=== PATIENT | female | born 1965 | race Caucasian/White ===

== ENCOUNTER 2021-10-13 17:42 | Emergency (ER) | payer SELFPAY ==
[2021-10-13 18:31] LABS: Absolute Lymphocytes (CBC) 2.2 K/uL (0.7-4.9); Hematocrit 48.6 % (36.0-45.0); Lymphocytes % 32.6 % (15.3-44.8); MPV 7.9 fL (7.6-11.3); RBC Red Blood Cell Count 5.17 M/uL (3.86-4.86)
[2021-10-13 18:32] LABS: Urine Blood 1+ (Negative); Urine Glucose Negative (Negative); Urine Protein Trace (Negative); Urine pH 6.5 (5.0-7.0)
[2021-10-13 18:46] LABS: Protime INR 1.07
[2021-10-13 19:08] LABS: Urine Bacteria >50 /HPF (<20)
[2021-10-13 19:15] LABS: ALT/SGPT 30 U/L (12-78); AST/SGOT 13 U/L (15-37); Albumin 4.1 g/dL (3.4-5.0); Alkaline Phosphatase 102 U/L (45-117); BUN Blood Urea Nitrogen 16 mg/dL (7-18); Bicarbonate 27 mmol/L (21-32); Bilirubin Direct < 0.1 mg/dL (0-0.2); Bilirubin Total 0.3 mg/dL (0.2-1.0); Glucose Level 98 mg/dL (74-106); Potassium 3.5 mmol/L (3.5-5.1); Protein, Total 7.7 g/dL (6.4-8.2); Sodium Level 141 mmol/L (136-145)
[2021-10-13 19:15] LABS: Barbiturates NEGATIVE (NEGATIVE); Benzodiazepines NEGATIVE (NEGATIVE); Cocaine NEGATIVE (NEGATIVE); METHAMPHETAM POSITIVE (NEGATIVE); Methadone NEGATIVE (NEGATIVE); Opiates NEGATIVE (NEGATIVE); Phencyclidine NEGATIVE (NEGATIVE); THC Cannibis NEGATIVE (NEGATIVE)
[2021-10-13] MEDS ORDERED: CEFTRIAXONE 1000 MG/VIAL ONE (20:05)
--- NOTE | 2021-10-13 21:07 | ER ---
Nurse's Notes [facility] Name: Sima Rojo Age: 56 yrs Sex: Female : 1965 Arrival Date: 10/13/2021 Time: 17:43 Bed 8 Private MD: Diagnosis: Suicidal ideations Presentation: 10/13 17:48 Chief complaint: Patient states: PD was called by friends/family while at [place], pt ph stated that she was suicidal and was willing to come to the ER for treatment. Pt reports paranoia, states, " They are all out to get me. They keep going through my stuff and are saying that I'm stealing." Pt tearful in triage, states , " I just don't care anymore." Denies plan, reports hx of depression. Coronavirus screen: Vaccine status: Patient reports being unvaccinated. At this time, the client does not indicate any symptoms associated with coronavirus-19. Ebola Screen: No symptoms or risks identified at this time. Initial Sepsis Screen: Does the patient meet any 2 criteria? No. Patient's initial sepsis screen is negative. Does the patient have a suspected source of infection? No. Patient's initial sepsis screen is negative. Risk Assessment: Do you want to hurt yourself or someone else? Patient reports desire/thoughts of hurting themselves or someone else. Provider notified. Onset of symptoms was October 13, 2021. 17:48 Method Of Arrival: Ambulatory 17:48 Acuity: JUDAH 2 ph Triage Assessment: 10/16 03:34 General: Appears in no apparent distress. comfortable. lg3 MD DO RESIDENT URGENT CARE: 09:36 LMP N/A - Post-menopause jl7 Historical: - Allergies: 10/13 17:54 No Known Allergies; ph - PMHx: 17:54 Depressive disorder; ph - PSHx: 17:54 Appendectomy; ph - Immunization history:: Adult Immunizations unknown. - Social history:: Smoking status: Patient reports the use of cigarette tobacco products, smokes one-half pack cigarettes per day, Patient/guardian denies using alcohol, street drugs. Screenin:03 Abuse screen: Denies threats or abuse. Nutritional screening: No deficits noted. vg1 Tuberculosis screening: No symptoms or risk factors identified. Fall Risk No fall in past 12 months (0 pts). No secondary diagnosis (0 pts). IV access (20 points). Ambulatory Aid- None/Bed Rest/Nurse Assist (0 pts). Gait- Normal/Bed Rest/Wheelchair (0 pts) Mental Status- Oriented to own ability (0 pts). Total Ruth Fall Scale indicates No Risk (0-24 pts). Assessment: 18:58 General: Appears uncomfortable, slender, Behavior is cooperative, crying. Pain: Denies vg1 pain. Neuro: Level of Consciousness is awake, alert, obeys commands, Oriented to person, place, time, situation. Cardiovascular: Patient's skin is warm and dry. Respiratory: Airway is patent Respiratory effort is even, unlabored. GI: No signs and/or symptoms were reported involving the gastrointestinal system. : No signs and/or symptoms were reported regarding the genitourinary system. EENT: No signs and/or symptoms were reported regarding the EENT system. Derm: Skin is intact, Skin is pink, warm \\T\\ dry. Musculoskeletal: Circulation, motion, and sensation intact. 19:00 Reassessment: safety check complete - room is clear of trash, unnecessary equipment, al4 and potentially harmful objects. patients belongings are at nurses station with the exception of her phone/tablet (supervisor propellant charge loading aware). service liaison representative states there will be no sitter assigned to patient on this shift. 19:17 General: Appears in no apparent distress. comfortable, Behavior is calm, cooperative. al4 Pain: Denies pain. Neuro: Level of Consciousness is awake, alert, obeys commands, Oriented to person, place, time, situation. Cardiovascular: Capillary refill < 3 seconds Patient's skin is warm and dry. Respiratory: Airway is patent Respiratory effort is even, unlabored. GI: No signs and/or symptoms were reported involving the gastrointestinal system. : No signs and/or symptoms were reported regarding the genitourinary system. EENT: No signs and/or symptoms were reported regarding the EENT system. Derm: Skin is intact, Skin is pink, warm \\T\\ dry. Musculoskeletal: Circulation, motion, and sensation intact. 20:00 Reassessment: Patient is alert, oriented x 3, equal unlabored respirations, skin al4 warm/dry/pink. . 21:00 Reassessment: Patient is alert, oriented x 3, equal unlabored respirations, skin al4 warm/dry/pink. . 22:00 Reassessment: Patient is alert, oriented x 3, equal unlabored respirations, skin al4 warm/dry/pink. . 23:00 Reassessment: Patient is alert, oriented x 3, equal unlabored respirations, skin al4 warm/dry/pink. 10/14 00:00 Reassessment: Patient is alert, oriented x 3, equal unlabored respirations, skin al4 warm/dry/pink. 02:00 Reassessment: patients belongings were taken earlier by transportation security officer Bjorn. al4 02:00 Reassessment: update C-SSRS: patient states she has attempted suicide in her lifetime, al4 but self interrupted said attempt. Patient states that she has wished she were and had thoughts of suicide in the past month and states "sorta" when asked if she had a plan. Patient denies recent loss by saying "I dont think so, no" when asked about recent relationship and financial loss. Patient states that she is currently homeless and "sometimes" feels alone. Patient denies previous psychiatric diagnosis when asked and states the only thing she has been diagnosed with is depression. Patient does feel like she has anxiety and aggression towards others and also feels like she is a burden to family or others. Patient identifies reason to live: "my kids" and says she has "a few" supportive friends and social network. Patient denies having access to a method for suicide ex: guns, or pills. 06:09 Reassessment: cell phone, tablet and staff technologist sent with transportation security officer Bjorn. al4 06:34 Reassessment: Paper charting done with guidance from Belia Yee RN. al4 06:56 Reassessment: phone at bedside with staff technologist so [facility] can contact patient. tablet al4 is still with security. 07:15 General: Appears in no apparent distress. comfortable, Behavior is calm, cooperative. vg1 Pain: Denies pain. Neuro: Level of Consciousness is awake, alert, obeys commands, Oriented to person, place, time, situation. Cardiovascular: Patient's skin is warm and dry. Respiratory: Airway is patent Respiratory effort is even, unlabored. GI: No signs and/or symptoms were reported involving the gastrointestinal system. : : No signs and/or symptoms were reported regarding the genitourinary system. Derm: Skin is intact, Skin is pink, warm \\T\\ dry. Musculoskeletal: Circulation, motion, and sensation intact. 07:15 Reassessment: at this time pt denies any thoughts of SI since last asked. [facility] for further information. 19:00 Reassessment: service liaison representative notified of the request for a sitter. No sitter will be present al4 on this shift. 19:15 General: Appears in no apparent distress. comfortable, Behavior is calm, cooperative. al4 Pain: Denies pain. Neuro: Level of Consciousness is awake, alert, obeys commands, Oriented to person, place, time, situation. Cardiovascular: Capillary refill < 3 seconds Patient's skin is warm and dry. Respiratory: Airway is patent Respiratory effort is even, unlabored. GI: Patient currently denies abdominal pain, nausea. : No signs and/or symptoms were reported regarding the genitourinary system. EENT: No signs and/or symptoms were reported regarding the EENT system. Derm: Skin is intact, Skin is pink, warm \\T\\ dry. Musculoskeletal: Circulation, motion, and sensation intact. Range of motion: intact in all extremities. 19:15 Reassessment: patient denies any thoughts of SI since last asked. please refer to al4 C-SSRS paper charting for more information. 20:23 Reassessment: Patient is back in room. Patient was taken upstairs to shower and brush al4 teeth by myself and [email or web address]. new blankets, and new scrubs given. 10/15 06:53 Reassessment: Patient is alert, oriented x 3, equal unlabored respirations, skin al4 warm/dry/pink. 07:10 General: Appears in no apparent distress. comfortable, Behavior is calm, cooperative. cb5 Pain: Denies pain. Neuro: Level of Consciousness is awake, alert, obeys commands, Oriented to person, place, time, situation. Cardiovascular: Capillary refill < 3 seconds Patient's skin is warm and dry. Respiratory: Airway is patent Respiratory effort is. GI: No signs and/or symptoms were reported involving the gastrointestinal system. Patient currently denies abdominal pain. : No signs and/or symptoms were reported regarding the genitourinary system. EENT: No signs and/or symptoms were reported regarding the EENT system. Derm: Skin is intact, Skin is pink, warm \\T\\ dry. Musculoskeletal: Circulation, motion, and sensation intact. Range of motion: intact in all extremities. 08:00 Reassessment: Patient is alert, oriented x 3, equal unlabored respirations, skin cb5 warm/dry/pink. 09:00 Reassessment: Patient and/or family updated on plan of care and expected duration. Pain cb5 level reassessed. Patient is alert, oriented x 3, equal unlabored respirations, skin warm/dry/pink. 10:00 Reassessment: Patient and/or family updated on plan of care and expected duration. Pain cb5 level reassessed. Patient is alert, oriented x 3, equal unlabored respirations, skin warm/dry/pink. pt awake, in no acute distress. Ate 100% of breakfast this morning, omi well. 11:00 Reassessment: Patient and/or family updated on plan of care and expected duration. Pain cb5 level reassessed. Patient is alert, oriented x 3, equal unlabored respirations, skin warm/dry/pink. 12:00 Reassessment: Patient and/or family updated on plan of care and expected duration. Pain cb5 level reassessed. Patient is alert, oriented x 3, equal unlabored respirations, skin warm/dry/pink. 13:00 Reassessment: Patient and/or family updated on plan of care and expected duration. Pain cb5 level reassessed. pt ate 100% of lunch omi well. 14:00 Reassessment: Patient and/or family updated on plan of care and expected duration. Pain cb5 level reassessed. Patient is alert, oriented x 3, equal unlabored respirations, skin warm/dry/pink. 15:00 Reassessment: Patient and/or family updated on plan of care and expected duration. Pain cb5 level reassessed. Patient is alert, oriented x 3, equal unlabored respirations, skin warm/dry/pink. 16:00 Reassessment: Patient and/or family updated on plan of care and expected duration. Pain cb5 level reassessed. Patient is alert, oriented x 3, equal unlabored respirations, skin warm/dry/pink. 17:01 Reassessment: pt awake, alert, in no acute distress. cb5 18:00 Reassessment: Patient and/or family updated on plan of care and expected duration. Pain cb5 level reassessed. Patient is alert, oriented x 3, equal unlabored respirations, skin warm/dry/pink. pt awake, in no acute distress. . 18:51 Reassessment: Patient and/or family updated on plan of care and expected duration. Pain cb5 level reassessed. Patient is alert, oriented x 3, equal unlabored respirations, skin warm/dry/pink. 19:59 General: pt resting at this time. NAD. as6 21:50 General: finger foods provided . as6 10/16 01:32 Reassessment: Patient appears in no apparent distress at this time. No changes from lg3 previously documented assessment. Patient and/or family updated on plan of care and expected duration. Pain level reassessed. Patient is alert, oriented x 3, equal unlabored respirations, skin warm/dry/pink. General: Appears in no apparent distress. comfortable. 06:57 Reassessment: Patient appears in no apparent distress at this time. pt quietly resting lg3 at this time. 07:15 Reassessment: Pt laying in bed with eyes closed, respiration seen and unlabored, no jl7 signs of distress noted. 09:00 Reassessment: Breakfast tray delivered, pt ate 75%. jl7 13:00 Reassessment: Lunch tray delivered, pt ate 100%. jl7 15:06 Reassessment: Pt crying, appears anxious and states "I just want to go home." Pt jl7 reports continued SI, states "I just want to . I was told I would be transferred and that was 3 days ago but I'm still here." Pt continues to cry. Updated pt on transfer status, we are waiting for acceptance, all facilities are full and waiting for another pt to be discharged then she will be accepted for transfer. Pt verbalized understanding. Asked pt if she wanted something to help calm down and pt agreed. ERD notified, VO for 5 mg Valium PO. Pt medicated as ordered and stretcher changed to hospital bed for pt comfort. Pt laid down in hospital bed and states "That is so much better. Thank you.". Psych: 10/13 19:05 [place] Suicide Severity Screening: In the past month, have you wished you were vg1 or wished you could go to sleep and not wake up? Patient responds "yes." Based off the client's responses additional C-SSRS screening is required. "In the past month, have you actually had any thoughts of killing yourself?" Patient responds "yes." Based off the client's response additional [place] suicide severity screening questions to be further documented on paper forms. "In your lifetime, have you ever done anything, started to do anything, or prepared to do anything to end your life?" Patient responds "yes." Patient reports suicidal intent within 3 past months. Patient reports suicidal intent occurred greater than 3 months prior. Subjective: Patient's mood is sad, Delusions are denied, Hallucinations are denied Having thoughts of suicide. Plan for suicide is 'to hang myself; I just dont know how to do it'. Pt also states 'if I dont go through with the hanging my next plan would probably be pills'. Objective: Patient is cooperative, Speech is normal, Affect is appropriate. Interventions: Removed personal items and placed in bag. Patient placed in hospital gown. Searched person for dangerous items. Urine collected and sent for urine drug test. Safety Checks: Personal items have been removed. Door is open. Pt denies substance abuse. 10/16 07:00 [place] Suicide Severity Screening: In the past month, have you wished you were jl7 or wished you could go to sleep and not wake up? Patient responds "yes." "In the past month, have you actually had any thoughts of killing yourself?" Patient responds "yes." Based off the client's response additional [place] suicide severity screening questions to be further documented on paper forms. "In your lifetime, have you ever done anything, started to do anything, or prepared to do anything to end your life?" Patient responds "yes." Patient reports suicidal intent within 3 past months. Patient reports suicidal intent occurred greater than 3 months prior. Subjective: Patient's mood is sad, Delusions are denied, Hallucinations are denied Having thoughts of suicide. Plan for suicide is Hanging or take pills. Objective: Patient is cooperative, Speech is normal, Affect is appropriate. 07:00 Safety Checks: Personal items have been removed. Door is open. No visitors are present jl7 at this time. 07:15 Safety Checks: Personal items have been removed. Door is open. No visitors are present jl7 at this time. 07:30 Safety Checks: Personal items have been removed. Door is open. No visitors are present jl7 at this time. 07:45 Safety Checks: Personal items have been removed. Door is open. No visitors are present jl7 at this time. 08:00 Safety Checks: Personal items have been removed. Door is open. No visitors are present jl7 at this time. 08:15 Safety Checks: Personal items have been removed. Door is open. No visitors are present jl7 at this time. 08:30 Safety Checks: Personal items have been removed. Door is open. No visitors are present jl7 at this time. 08:45 Safety Checks: Personal items have been removed. Door is open. No visitors are present jl7 at this time. 09:00 Safety Checks: Personal items have been removed. Door is open. No visitors are present jl7 at this time. 09:15 Safety Checks: Personal items have been removed. Door is open. No visitors are present jl7 at this time. 09:30 Safety Checks: Personal items have been removed. Door is open. No visitors are present jl7 at this time. 09:45 Safety Checks: Personal items have been removed. Door is open. No visitors are present jl7 at this time. 10:00 Safety Checks: Personal items have been removed. Door is open. No visitors are present jl7 at this time. 10:15 Safety Checks: Personal items have been removed. Door is open. No visitors are present jl7 at this time. 10:30 Safety Checks: Personal items have been removed. Door is open. No visitors are present jl7 at this time. 10:45 Safety Checks: Personal items have been removed. Door is open. No visitors are present jl7 at this time. 11:00 Safety Checks: Personal items have been removed. Door is open. No visitors are present jl7 at this time. 11:15 Safety Checks: Personal items have been removed. Door is open. No visitors are present jl7 at this time. 11:30 Safety Checks: Personal items have been removed. Door is open. No visitors are present jl7 at this time. 11:45 Safety Checks: Personal items have been removed. Door is open. No visitors are present jl7 at this time. 12:00 Safety Checks: Personal items have been removed. Door is open. No visitors are present jl7 at this time. 12:15 Safety Checks: Personal items have been removed. Door is open. No visitors are present jl7 at this time. 12:30 Safety Checks: Personal items have been removed. Door is open. No visitors are present jl7 at this time. 12:45 Safety Checks: Personal items have been removed. Door is open. No visitors are present jl7 at this time. 13:00 Safety Checks: Personal items have been removed. Door is open. No visitors are present jl7 at this time. 13:15 Safety Checks: Personal items have been removed. Door is open. No visitors are present jl7 at this time. 13:30 Safety Checks: Personal items have been removed. Door is open. No visitors are present jl7 at this time. 13:45 Safety Checks: Personal items have been removed. Door is open. No visitors are present jl7 at this time. 14:00 Safety Checks: Personal items have been removed. Door is open. No visitors are present jl7 at this time. 14:15 Safety Checks: Personal items have been removed. Door is open. No visitors are present jl7 at this time. 14:30 Safety Checks: Personal items have been removed. Door is open. No visitors are present jl7 at this time. 14:45 Safety Checks: Personal items have been removed. Door is open. No visitors are present jl7 at this time. 15:00 Safety Checks: Personal items have been removed. Door is open. No visitors are present jl7 at this time. 15:15 Safety Checks: Personal items have been removed. Door is open. No visitors are present jl7 at this time. 15:30 Safety Checks: Personal items have been removed. Door is open. No visitors are present jl7 at this time. 18:30 Commitment: Patient will be a voluntary commitment. [facility] Vital Signs: 10/13 17:48 BP 153 / 94; Pulse 91; Resp 18; Temp 98.3; Pulse Ox 100% on R/A; Weight 68.04 kg; ph Height 5 ft. 5 in. (165.10 cm); 22:43 BP 125 / 94; Pulse 97; Resp 18 S; Pulse Ox 98% on R/A; Pain 0/10; al4 02/13 07:15 BP 122 / 87; Pulse 75; Resp 14; Temp 97.5(O); Pulse Ox 98% ; vg1 19:36 Temp 97.9; al4 19:38 BP 114 / 73; Pulse 82; Resp 18; Pulse Ox 98% on R/A; oe 10/15 07:20 BP 116 / 70; Pulse 72; Resp 16; Temp 98.6; Pulse Ox 98% ; Pain 0/10; cb5 23:54 BP 129 / 77; Pulse 82; Resp 18 S; Pulse Ox 98% on R/A; as6 10/16 09:00 BP 123 / 80; Pulse 75; Resp 15; Temp 98.3; Pulse Ox 98% ; jl7 10/13 17:48 Body Mass Index 24.96 (68.04 kg, 165.10 cm) ph Totz Coma Score: 10/13 19:00 Eye Response: spontaneous(4). Verbal Response: oriented(5). Motor Response: obeys al4 commands(6). Total: 15. 10/14 00:00 Eye Response: spontaneous(4). Verbal Response: oriented(5). Motor Response: obeys al4 commands(6). Total: 15. 06:46 Eye Response: spontaneous(4). Verbal Response: oriented(5). Motor Response: obeys al4 commands(6). Total: 15. ED Course: 10/13 17:43 Patient arrived in ED. mr 17:54 Triage completed. ph 17:54 Arm band placed on. ph 17:56 Emerson Monahan NP is PHCP. pm1 17:56 Anibal Carrillo MD is Attending Physician. pm1 18:10 Initial lab(s) drawn, by nv, sent to lab. Inserted saline lock: 20 gauge in left dh3 antecubital area, using aseptic technique. Blood collected. 18:10 EKG done, by ED staff, reviewed by Emerson Monahan NP. 3 18:39 Sakshi Schroeder, RN is Primary Nurse. vg1 18:41 Urine Microscopic Only Sent. dh3 19:00 Safety Checks: Personal items have been removed. The door is open or patient has been al4 placed in a hallway bed/chair. Sitter not present at this time Note: patient awake, quiet and calm. 19:03 Patient has correct armband on for positive identification. Placed in gown. Bed in low vg1 position. Valuables Locked in safe. One-on-one care X 15 minutes. 19:05 No provider procedures requiring assistance completed. vg1 19:30 No apparent distress. Resting quietly. Safety Checks: Sitter not present at this time. al4 19:30 Patient has correct armband on for positive identification. Bed in low position. Side al4 rails up X2. 20:00 No apparent distress. Resting quietly. Safety Checks: Sitter not present at this time. al4 20:30 No apparent distress. Resting quietly. Safety Checks: Sitter not present at this time. al4 21:00 No apparent distress. Resting quietly. Safety Checks: Sitter not present at this time. al4 21:15 No apparent distress. Resting quietly. Safety Checks: Sitter not present at this time. al4 21:30 No apparent distress. Resting quietly. Safety Checks: Sitter not present at this time. al4 22:00 No apparent distress. Resting quietly. Safety Checks: Safety Checks: Sitter not present al4 at this time. 22:30 No apparent distress. Resting quietly. Safety Checks: Sitter not present at this time. al4 23:00 No apparent distress. Resting quietly. Safety Checks: Sitter not present at this time. al4 23:30 No apparent distress. Resting quietly. Safety Checks: Sitter not present at this time. al4 13 00:00 No apparent distress. Resting quietly. Safety Checks: Sitter not present at this time. al4 00:30 No apparent distress. Resting quietly. Safety Checks: Sitter not present at this time. al4 01:00 No apparent distress. Appears to be sleeping. Safety Checks: Sitter not present at this al4 time. 01:30 No apparent distress. Appears to be sleeping. Safety Checks: Sitter not present at this al4 time. 02:00 No apparent distress. Appears to be sleeping. Safety Checks: Sitter not present at this al4 time. 02:30 No apparent distress. Appears to be sleeping. Safety Checks: Sitter not present at this al4 time. 03:00 No apparent distress. Resting quietly. Safety Checks: Sitter not present at this time. al4 03:30 No apparent distress. Appears to be sleeping. Safety Checks: Sitter not present at this al4 time. 04:00 No apparent distress. Resting quietly. Appears to be sleeping. Safety Checks: Sitter al4 not present at this time. 04:30 No apparent distress. Resting quietly. Appears to be sleeping. Safety Checks: Sitter al4 not present at this time. 05:00 No apparent distress. Resting quietly. Appears to be sleeping. Safety Checks: Sitter al4 not present at this time. 05:30 No apparent distress. Appears to be sleeping. Safety Checks: Sitter not present at this al4 time. 06:00 No apparent distress. Resting quietly. Appears to be sleeping. Safety Checks: Sitter al4 not present at this time. 06:19 called the [facility] Crisis line to page out the screener weapons system instrument mechanic for patient eb screening. 06:29 No apparent distress. Appears to be sleeping. Safety Checks: Sitter not present at this al4 time. 06:35 Urine Culture Sent. mk 06:35 Acetaminophen Sent. mk 06:56 faxed patient cart to Cammy from [facility]/ She will call patient cell for patient eb screening. 07:00 No apparent distress. Resting quietly. Appears to be sleeping. Safety Checks: Personal vg1 items have been removed. The door is open or patient has been placed in a hallway bed/chair. Sitter not present at this time due to or because unavailable; charge nurse aware. 07:30 No apparent distress. Resting quietly. Safety Checks: The door is open or patient has vg1 been placed in a hallway bed/chair. Items have not been removed from patient due to or because: pt has cell phone at bedside and is currently speaking with personal from [facility] Sitter not present at this time due to or because no sitter at this time; charge nurse aware. 08:00 No apparent distress. Resting quietly. Safety Checks: Personal items have been removed. vg1 Pt states was done speaking with personal at [facility]; pt cell phone at nurses station. The door is open or patient has been placed in a hallway bed/chair. Sitter not present at this time due to or because sitter not available at this time; charge nurse aware. 08:08 Per Cammy from [facility] she recommends inpatient after her screening/ She asks for eb me to send chart over to [facility]/ She will call and let them know about the patient. / faxed patient records. 08:13 attempted to initiate a transfer with [facility]/ patient was denied due eb to being at capacity. 08:30 No apparent distress. eating breakfast. Safety Checks: Personal items have been vg1 removed. The door is open or patient has been placed in a hallway bed/chair. Sitter not present at this time due to or because sitter not available at this time; charge nurse aware. 09:00 No apparent distress. Resting quietly. Safety Checks: Personal items have been removed. vg1 The door is open or patient has been placed in a hallway bed/chair. Sitter not present at this time Note: sitter unavailable at this time; charge nurse aware. 09:30 No apparent distress. Appears to be sleeping. Safety Checks: Personal items have been vg1 removed. The door is open or patient has been placed in a hallway bed/chair. Sitter not present at this time due to or because sitter unavailable; charge nurse aware. 10:00 No apparent distress. Appears to be sleeping. Safety Checks: Personal items have been vg1 removed. The door is open or patient has been placed in a hallway bed/chair. Sitter not present at this time due to or because sitter unavailable; charge nurse aware. 10:30 Safety Checks: Personal items have been removed. The door is open or patient has been vg1 placed in a hallway bed/chair. Sitter not present at this time due to or because sitter unavailable; charge nurse notified. 10:30 No apparent distress. Appears to be sleeping. vg1 11:00 No apparent distress. pt walked with to the restroom. Safety Checks: Personal items vg1 have been removed. The door is open or patient has been placed in a hallway bed/chair. Sitter not present at this time due to or because sitter unavailable; charge nurse aware. 11:30 No apparent distress. Resting quietly. Safety Checks: Personal items have been removed. vg1 The door is open or patient has been placed in a hallway bed/chair. Sitter not present at this time due to or because sitter unavailabel; charge nurse aware. 12:00 No apparent distress. Appears to be sleeping. Safety Checks: Personal items have been vg1 removed. The door is open or patient has been placed in a hallway bed/chair. Sitter not present at this time due to or because sitter unavailable; charge nurse aware. 12:30 No apparent distress. Appears to be sleeping. Safety Checks: Personal items have been vg1 removed. The door is open or patient has been placed in a hallway bed/chair. Sitter not present at this time due to or because sitter unavailable; charge nurse aware. 13:00 No apparent distress. Resting quietly. pt eating lunch. Safety Checks: Personal items vg1 have been removed. The door is open or patient has been placed in a hallway bed/chair. Safety Checks: Sitter not present at this time due to or because sitter unavailable; charge nurse aware. 13:30 No apparent distress. Resting quietly. Safety Checks: Personal items have been removed. vg1 The door is open or patient has been placed in a hallway bed/chair. Sitter not present at this time due to or because sitter unavailable; charge nurse aware. 14:00 No apparent distress. Appears to be sleeping. Safety Checks: Personal items have been vg1 removed. The door is open or patient has been placed in a hallway bed/chair. Sitter not present at this time due to or because sitter unavailable; charge nurse aware. 14:30 No apparent distress. Appears to be sleeping. Safety Checks: Personal items have been vg1 removed. The door is open or patient has been placed in a hallway bed/chair. Sitter not present at this time due to or because sitter unavailable; charge nurse aware. 15:00 No apparent distress. Appears to be sleeping. Safety Checks: Personal items have been vg1 removed. The door is open or patient has been placed in a hallway bed/chair. Sitter not present at this time due to or because sitter unavailable; charge nurse aware. 15:30 No apparent distress. Appears to be sleeping. Safety Checks: Personal items have been vg1 removed. The door is open or patient has been placed in a hallway bed/chair. Sitter not present at this time due to or because sitter unavailable; charge nurse aware. 16:00 No apparent distress. Appears to be sleeping. Safety Checks: Personal items have been vg1 removed. The door is open or patient has been placed in a hallway bed/chair. Sitter not present at this time due to or because sitter unavialable; charge nurse aware. 16:30 No apparent distress. Appears to be sleeping. Safety Checks: Personal items have been vg1 removed. The door is open or patient has been placed in a hallway bed/chair. Sitter not present at this time due to or because sitter unavailable; charge nurse aware. 17:00 No apparent distress. Resting quietly. eating dinner. Safety Checks: Personal items vg1 have been removed. The door is open or patient has been placed in a hallway bed/chair. Sitter not present at this time due to or because sitter unavailable; charge nurse aware. 17:30 No apparent distress. Resting quietly. Safety Checks: Personal items have been removed. vg1 The door is open or patient has been placed in a hallway bed/chair. Sitter not present at this time due to or because sitter unavailable; charge nurse aware. 18:00 No apparent distress. Resting quietly. Safety Checks: Personal items have been removed. vg1 The door is open or patient has been placed in a hallway bed/chair. Sitter not present at this time due to or because sitter unavailable; charge nurse aware. 18:30 pt had accidental BM; wasn't able to make it to bedside commode; pt crying/upset; vg1 reassured pt everything was ok. 18:50 Warm blanket given. Oral care given. Cleaned of incontinence. Linen changed. pt was vg1 given cleaned paper scrubs; pt requesting shower; receiving nurse notified. 19:00 Primary Nurse role handed off by Sakshi Schroeder, RN cs9 19:00 No apparent distress. Resting quietly. Safety Checks: The door is open or patient has al4 been placed in a hallway bed/chair. Sitter not present at this time Note: supervisor propellant charge loading aware. 19:27 Raciel Mack is Primary Nurse. al4 19:30 No apparent distress. Resting quietly. Safety Checks: The door is open or patient has al4 been placed in a hallway bed/chair. Sitter not present at this time. 20:25 No apparent distress. Resting quietly. patient back in bed. denies pain. denies any al4 distress. Safety Checks: The door is open or patient has been placed in a hallway bed/chair. Sitter not present at this time. 21:00 No apparent distress. Resting quietly. Appears to be sleeping. Safety Checks: The door al4 is open or patient has been placed in a hallway bed/chair. Sitter not present at this time Note: supervisor propellant charge loading aware. 21:26 No apparent distress. Resting quietly. Patient requests food. kyler crackers. Safety al4 Checks: The door is open or patient has been placed in a hallway bed/chair. Sitter not present at this time. 22:02 No apparent distress. Resting quietly. Appears to be sleeping. Safety Checks: The door al4 is open or patient has been placed in a hallway bed/chair. Sitter not present at this time. 22:30 No apparent distress. Resting quietly. Appears to be sleeping. Safety Checks: The door al4 is open or patient has been placed in a hallway bed/chair. Sitter not present at this time. 22:58 No apparent distress. Resting quietly. Appears to be sleeping. Safety Checks: The door al4 is open or patient has been placed in a hallway bed/chair. Sitter not present at this time. 23:30 No apparent distress. Resting quietly. Appears to be sleeping. Safety Checks: The door al4 is open or patient has been placed in a hallway bed/chair. Sitter not present at this time. 14 00:00 No apparent distress. Appears to be sleeping. Safety Checks: The door is open or al4 patient has been placed in a hallway bed/chair. Sitter not present at this time. 00:30 No apparent distress. Appears to be sleeping. Safety Checks: The door is open or al4 patient has been placed in a hallway bed/chair. Sitter not present at this time. 01:00 No apparent distress. Appears to be sleeping. Safety Checks: The door is open or al4 patient has been placed in a hallway bed/chair. Sitter not present at this time. 01:03 Re Faxed all info to [facility], [facility], [place], [facility], [place] [address] [address], [place], Candace Wu, and [facility] 01:30 No apparent distress. Appears to be sleeping. Safety Checks: The door is open or al4 patient has been placed in a hallway bed/chair. Sitter not present at this time. 02:00 No apparent distress. Appears to be sleeping. Safety Checks: The door is open or al4 patient has been placed in a hallway bed/chair. Sitter not present at this time. 02:30 No apparent distress. Resting quietly. Appears to be sleeping. Safety Checks: The door al4 is open or patient has been placed in a hallway bed/chair. Sitter not present at this time. 03:00 No apparent distress. Resting quietly. Appears to be sleeping. Safety Checks: The door al4 is open or patient has been placed in a hallway bed/chair. Sitter not present at this time. 03:19 patient ambulated to restroom. No apparent distress. Safety Checks: The door is open or al4 patient has been placed in a hallway bed/chair. Sitter not present at this time. 03:55 No apparent distress. Resting quietly. Appears to be sleeping. Safety Checks: The door al4 is open or patient has been placed in a hallway bed/chair. Sitter not present at this time. 04:30 No apparent distress. Resting quietly. Appears to be sleeping. Safety Checks: The door al4 is open or patient has been placed in a hallway bed/chair. Sitter not present at this time. 05:00 No apparent distress. Resting quietly. Appears to be sleeping. Safety Checks: The door al4 is open or patient has been placed in a hallway bed/chair. Sitter not present at this time. 05:30 No apparent distress. Resting quietly. Appears to be sleeping. Safety Checks: The door al4 is open or patient has been placed in a hallway bed/chair. Sitter present at this time. 06:00 No apparent distress. Resting quietly. Appears to be sleeping. Safety Checks: The door al4 is open or patient has been placed in a hallway bed/chair. Sitter not present at this time. 06:33 No apparent distress. Resting quietly. Appears to be sleeping. Safety Checks: The door al4 is open or patient has been placed in a hallway bed/chair. Sitter not present at this time. 06:52 No apparent distress. Resting quietly. Safety Checks: The door is open or patient has al4 been placed in a hallway bed/chair. Sitter not present at this time. 07:00 Report given to CAROLINA Davis. al4 07:58 Primary Nurse role handed off by Raciel Mack bd 08:19 Susan Spencer, RN is Primary Nurse. cb5 18:57 Report given to Alyx White cb5 19:28 Primary Nurse role handed off by Susan Spencer RN cs9 19:59 José Luis Anna, CAROLINA is Primary Nurse. as6 10/16 06:53 Primary Nurse role handed off by José Luis Anna RN cs9 07:00 No apparent distress. Appears to be sleeping. transfer approval from receiving [facility]. Safety Checks: Personal items have been removed. There are no family/friend visitors at this time Sitter not present at this time. 07:36 Winsome Ingram RN is Primary Nurse. jl7 18:55 IV discontinued, intact, bleeding controlled, No redness/swelling at site. Pressure jl7 dressing applied. Administered Medications: 10/13 20:07 Drug: Rocephin (cefTRIAXone) 1 grams Route: IV; Rate: calculated rate; Site: left al4 antecubital; 20:07 Follow up: IV Status: Completed infusion; IV Intake: 10ml al4 10/14 02:15 Drug: NS 0.9% 1000 ml Route: IV; Rate: 1000 ml; Site: left antecubital; al4 04:22 Follow up: IV Status: Completed infusion al4 19:37 Drug: Rocephin (cefTRIAXone) 1 grams Route: IV; Rate: calculated rate; Infused Over: 2 al4 mins; Site: left antecubital; 19:38 Follow up: Response: No adverse reaction; IV Status: Completed infusion; IV Intake: [id number] 10/15 23:47 Drug: Rocephin (cefTRIAXone) 1 grams Route: IV; Rate: calculated rate; Site: left as6 antecubital; 10/16 03:16 Follow up: Response: No adverse reaction; IV Status: Completed infusion; IV Intake: [id number] 14:55 Drug: Valium (diazepam) 5 mg Route: PO; jl7 15:30 Follow up: Response: No adverse reaction; Anxiety decreased jl7 17:10 Drug: Bactrim (trimethoprim-sulfamethoxazole) (160 mg-800 mg (DS) 1 tablet Route: PO; jl7 18:56 Follow up: Response: No adverse reaction jl7 Intake: 10/13 20:07 IV: 10ml; Total: 10ml. al4 10/14 19:38 IV: 10ml; Total: 20ml. al4 10/16 03:16 IV: 50ml; Total: 70ml. as6 Outcome: 10/13 21:07 ER care complete, transfer ordered by MD. pm1 10/16 18:55 Transferred by ground EMS to other acute care facility: [facility]. Transfer form jl7 completed. Condition: stable Discharge instructions given to patient, Instructed on the need for transfer, Demonstrated understanding of instructions. 18:56 Patient left the ED. jl7 Signatures: Tere Liu, Cookie mr Biswas, Heidi, RN RN ph Emerson Monahan, MANAGER SAFE MANAGER SAFE pm1 Teja Forbes Jahala, RN RN jl7 Venus Castano 3 Michelle Painter Lacie, RN RN carol ann3 Sakshi Schroeder, RN RN mary1 Trish Edmonds 9 José Luis Anna, RN RN as6 Raciel Mack al4 Anna Vanegas, RN RN Susan Spears, RN RN cb5 Corrections: (The following items were deleted from the chart) 10/13 22:45 20:00 Reassessment: Patient is alert, oriented x 3, equal unlabored respirations, skin al4 warm/dry/pink. al4 22:45 21:00 Reassessment: Patient is alert, oriented x 3, equal unlabored respirations, skin al4 warm/dry/pink. al4 10/14 02:32 10/13 20:00 Safety Checks: Personal items have been removed. The door is not opened, al4 nor is patient placed in a hallway bed/chair. curtain open Sitter not present at this time Other: patient awake, quite, calm al4 10/14 01:32 10/13 20:00 Safety Checks: Personal items have been removed. The door is not opened, al4 nor is patient placed in a hallway bed/chair. curtain open Sitter not present at this time Other: patient awake, calm, and quiet al4 10/14 02:40 10/13 21:15 Safety Checks: Personal items have been removed. The door is not opened, al4 nor is patient placed in a hallway bed/chair. curtain open Sitter not present at this time Note: patient awake, quiet, calm. patient offered sandwich and applesauce with MANAGER SAFE permission al4 10/14 02:40 02 22:30 Safety Checks: Personal items have been removed. The door is not opened, al4 nor is patient placed in a hallway bed/chair. curtain open Sitter not present at this time Other: patient awake, quiet, calm al4 10/14 02:45 01:30 Safety Checks: Personal items have been removed. The door is not opened, nor is al4 patient placed in a hallway bed/chair. curtain open Sitter not present at this time Note: patient is sleeping al4 02:47 00:00 Safety Checks: Personal items have been removed. The door is not opened, nor is al4 patient placed in a hallway bed/chair. curtain open Sitter not present at this time Other: patient laying in bed, no apparent distress, calm, quiet al4 02:47 01:00 Safety Checks: Personal items have been removed. The door is not opened, nor is al4 patient placed in a hallway bed/chair. curtain open Sitter not present at this time Other: patient is sleeping al4 02:48 02:00 Safety Checks: Personal items have been removed. The door is not opened, nor is al4 patient placed in a hallway bed/chair. curtain open Sitter not present at this time Note: patient is sleeping al4 02:48 02:30 Safety Checks: Personal items have been removed. The door is not opened, nor is al4 patient placed in a hallway bed/chair. curtain open Sitter not present at this time Note: patient is sleeping al4 02:52 02 19:30 Safety Checks: Personal items have been removed. The door is open or al4 patient has been placed in a hallway bed/chair. Sitter not present at this time Other: patient awake, quiet, and calm al4 10/14 02:52 02 20:00 Safety Checks: Personal items have been removed. The door is not opened, al4 nor is patient placed in a hallway bed/chair. curtain open Sitter not present at this time Other: patient awake, quiet, calm al4 10/14 01:10/13 20:30 Safety Checks: Personal items have been removed. The door is not opened, al4 nor is patient placed in a hallway bed/chair. curtain open Sitter not present at this time Other: patient awake, calm, and quiet al4 10/14 01:52 10/13 21:00 Safety Checks: Personal items have been removed. The door is not opened, al4 nor is patient placed in a hallway bed/chair. curtain open Sitter not present at this time Note: patient awake, calm, quiet al4 10/14 01:52 10/13 21:30 Safety Checks: Personal items have been removed. The door is not opened, al4 nor is patient placed in a hallway bed/chair. patient awake, quiet, clam al4 10/14 01:10/13 22:00 Safety Checks: Personal items have been removed. The door is not opened, al4 nor is patient placed in a hallway bed/chair. curtain is open Sitter not present at this time Other: patient awake, quiet, calm al4 10/14 01:10/13 21:15 Safety Checks: Personal items have been removed. The door is not opened, al4 nor is patient placed in a hallway bed/chair. curtain open Sitter not present at this time Note: patient awake, quiet, calm. patient offered water with MANAGER SAFE permission al4 10/14 01:10/13 22:30 Safety Checks: Personal items have been removed. The door is not opened, al4 nor is patient placed in a hallway bed/chair. curtain open Sitter not present at this time Other: patient awake, quiet, calm. patient denies needing to use the restroom al4 10/14 01:52 02 23:00 Safety Checks: Personal items have been removed. The door is not opened, al4 nor is patient placed in a hallway bed/chair. curtain open Sitter not present at this time Other: patient awake, quiet, calm. pt denies needing to use restroom al4 10/14 02:52 10/13 23:30 Safety Checks: Personal items have been removed. The door is not opened, al4 nor is patient placed in a hallway bed/chair. curtain open Sitter not present at this time Note: patient awake, quiet, calm. sandwich and apple juice given with MANAGER SAFE permission/ [facility] 10/14 00:00 Safety Checks: Personal items have been removed. The door is not opened, nor is al4 patient placed in a hallway bed/chair. curtain open Sitter not present at this time Other: patient laying in bed, no apparent distress, calm, quiet al4 00:30 Safety Checks: Personal items have been removed. The door is not opened, nor is al4 patient placed in a hallway bed/chair. Sitter not present at this time Other: patient laying in bed, no apparent distress al4 01:00 Safety Checks: Personal items have been removed. The door is not opened, nor is al4 patient placed in a hallway bed/chair. curtain open Sitter not present at this time Other: patient is sleeping al4 01:30 Safety Checks: Personal items have been removed. The door is not opened, nor is al4 patient placed in a hallway bed/chair. curtain is open Sitter not present at this time Other: patient is sleeping nd4 10/13 20:00 Reassessment: Patient is alert, oriented x 3, equal unlabored respirations, al4 skin warm/dry/pink. patient resting comfortably and on tablet. [facility] 10/14 21:00 Reassessment: Patient is alert, oriented x 3, equal unlabored respirations, al4 skin warm/dry/pink. patient entertained by tablet. [facility] 10/14 22:00 Reassessment: Patient is alert, oriented x 3, equal unlabored respirations, al4 skin warm/dry/pink. patient on tablet. nd4 10/14 00:30 Reassessment: Patient is alert, oriented x 3, equal unlabored respirations, skin al4 warm/dry/pink. [facility] 05:16 02:00 Reassessment: update C-SSRS: patient states she has attempted suicide in her al4 lifetime, but self interrupted said attempt. Patient states that she has wished she were and had thoughts of suicide in the past month and states "sorta" when asked if she had a plan. Patient denies recent loss by saying "I dont think so, no" when asked about recent relationship and financial loss. Patient states that she is currently homeless and "sometimes" feels alone. Patient denies previous psychiatric diagnosis when asked and states the only thing she has been diagnosed with is depression. Patient does feel like she has anxiety and aggression towards others and also feels like she is a burden to family or others. Patient identifies reason to live: "my kids" and says she has "a few" supportive friends and social network. al4 05:49 02:00 Reassessment: update C-SSRS: patient states she has attempted suicide in her al4 lifetime, but self interrupted said attempt. Patient states that she has wished she were and had thoughts of suicide in the past month and states "sorta" when asked if she had a plan. Patient denies recent loss by saying "I dont think so, no" when asked about recent relationship and financial loss. Patient states that she is currently homeless and "sometimes" feels alone. Patient denies previous psychiatric diagnosis when asked and states the only thing she has been diagnosed with is depression. Patient does feel like she has anxiety and aggression towards others and also feels like she is a burden to family or others. Patient identifies reason to live: "my kids" and says she has "a few" supportive friends and social network. Patient denies having access to a method for suicide ex: guns, or pills. al4 06:12 19:00 Reassessment: safety check complete - room is clear of trash, unnecessary al4 equipment, and potentially harmful objects. patients belongings are at nurses station with the exception of her phone/tablet (supervisor propellant charge loading aware) al4 10/14 06:00 05:46 Reassessment: al4 al4 06:00 02:00 Reassessment: C-SSRS QShift Screen: "since last asked" on page 2 of SI patient al4 packet 2. "have you actually had thoughts of killing yourself?" patient states no, not since being here 6. "have you done anything, started to do anything or prepared to do anything to end your life?" patient states no, not since being here al4 06:45 10/13 20:00 Reassessment: Patient is alert, oriented x 3, equal unlabored respirations, al4 skin warm/dry/pink. . al4 10/14 07:12 07:02 Safety Checks: al4 vg1 08:14 07:15 General: Appears in no apparent distress. comfortable, Behavior is calm, vg1 cooperative, vg1 08:24 08:00 No apparent distress. Resting quietly. Appears to be sleeping. vg1 vg1 20:28 08:25 No apparent distress. Resting quietly. patient back in bed. denies pain. denies al4 any distress. al4 20:28 08:25 Safety Checks: The door is open or patient has been placed in a hallway al4 bed/chair. Sitter not present at this time al4 : 20:23 Reassessment: Patient is back in room. Patient was taken upstairs to shower and al4 brush teeth by myself and [email or web address]. al4 10/15 06:52 10/14 20:23 Reassessment: Patient is back in room. Patient was taken upstairs to shower al4 and brush teeth by myself and [email or web address]. New linens, new blankets, and new scrubs given. al4 10/15 06:57 06:52 No apparent distress. Resting quietly. Appears to be sleeping. al4 al4
--- NOTE | 2021-10-13 21:07 | EDPHYS ---
Physician Documentation [facility] Name: Sima Rojo Age: 56 yrs Sex: Female : 1965 Arrival Date: 10/13/2021 Time: 17:43 Bed 8 Private MD: ED Physician Anibal Carrillo HPI: 10/13 18:08 This 56 yrs old Female presents to ER via Ambulatory with complaints of Suicidal pm1 Ideation. 18:08 The patient presents to the emergency department with depression, suicide ideation, and pm1 the patient has a plan, to hang oneself, to overdose with medications. Onset: The symptoms/episode began/occurred today. Past psychiatric history: Prior diagnosis: depression, Anxiety, Psychiatric medications include: none, Primary psychiatric physician: the patient does not have a primary psychiatric physician, Patient last seen by psychiatry 1.5 years ago for 4 - 5 virtual visits. Patient was taking trazodone, anti-depressant and anti-anxiety medication at the time. Associated signs and symptoms: The patient has no apparent associated signs or symptoms. Severity of symptoms: in the emergency department the symptoms are worse. The patient has not recently seen a physician. Patient was at dinner with friends/roommates and they started accusing her of stealing. She started feeling suicidal with plan of taking pills to OD or to hang herself. Patient with history of OD about 8 years ago. [employer]: 10/16 09:36 LMP N/A - Post-menopause jl7 Historical: - Allergies: 10/13 17:54 No Known Allergies; ph - PMHx: 17:54 Depressive disorder; ph - PSHx: 17:54 Appendectomy; ph - Immunization history:: Adult Immunizations unknown. - Social history:: Smoking status: Patient reports the use of cigarette tobacco products, smokes one-half pack cigarettes per day, Patient/guardian denies using alcohol, street drugs. ROS: 18:08 Constitutional: Negative for fever, chills, and weight loss, Cardiovascular: Negative pm1 for chest pain, palpitations, and edema, Respiratory: Negative for shortness of breath, cough, wheezing, and pleuritic chest pain, Abdomen/GI: Negative for abdominal pain, nausea, vomiting, diarrhea, and constipation, : Negative for injury, bleeding, discharge, and swelling, MS/Extremity: Negative for injury and deformity, Skin: Negative for injury, rash, and discoloration, Neuro: Negative for headache, weakness, numbness, tingling, and seizure. 18:08 Psych: Positive for depression, suicidal ideation, Negative for homicidal ideation. 18:08 All other systems are negative. Exam: 18:08 Constitutional: This is a well developed, well nourished patient who is awake, alert, pm1 and in no acute distress. Head/Face: Normocephalic, atraumatic. 18:08 Back: No spinal tenderness. No costovertebral tenderness. Full range of motion. Skin: Warm, dry with normal turgor. Normal color with no rashes, no lesions, and no evidence of cellulitis. MS/ Extremity: Pulses equal, no cyanosis. Neurovascular intact. Full, normal range of motion. 18:08 Cardiovascular: Exam negative for acute changes, Rate: normal, Rhythm: regular, Pulses: no pulse deficits are appreciated. 18:08 Respiratory: Exam negative for acute changes, respiratory distress, shortness of breath. 18:08 Abdomen/GI: Inspection: abdomen appears normal, Palpation: abdomen is soft and non-tender, in all quadrants. 18:08 Neuro: Exam negative for acute changes, Orientation: is normal, Mentation: is normal, Motor: is normal, moves all fours. 18:08 Psych: Behavior/mood is depressed, Affect is flat, Oriented to person, place, time, Patient having thoughts of suicide. Plan for suicide is OD or hanging Vital Signs: 17:48 BP 153 / 94; Pulse 91; Resp 18; Temp 98.3; Pulse Ox 100% on R/A; Weight 68.04 kg; ph Height 5 ft. 5 in. (165.10 cm); 22:43 BP 125 / 94; Pulse 97; Resp 18 S; Pulse Ox 98% on R/A; Pain 0/10; al4 10/14 07:15 BP 122 / 87; Pulse 75; Resp 14; Temp 97.5(O); Pulse Ox 98% ; vg1 19:36 Temp 97.9; al4 19:38 BP 114 / 73; Pulse 82; Resp 18; Pulse Ox 98% on R/A; oe 10/15 07:20 BP 116 / 70; Pulse 72; Resp 16; Temp 98.6; Pulse Ox 98% ; Pain 0/10; cb5 23:54 BP 129 / 77; Pulse 82; Resp 18 S; Pulse Ox 98% on R/A; as6 10/16 09:00 BP 123 / 80; Pulse 75; Resp 15; Temp 98.3; Pulse Ox 98% ; jl7 10/13 17:48 Body Mass Index 24.96 (68.04 kg, 165.10 cm) ph [place] Coma Score: 10/13 19:00 Eye Response: spontaneous(4). Verbal Response: oriented(5). Motor Response: obeys al4 commands(6). Total: 15. 10/14 00:00 Eye Response: spontaneous(4). Verbal Response: oriented(5). Motor Response: obeys al4 commands(6). Total: 15. 06:46 Eye Response: spontaneous(4). Verbal Response: oriented(5). Motor Response: obeys al4 commands(6). Total: 15. MDM: 10/13 18:06 Patient medically screened. pm1 21:06 Data reviewed: vital signs. Data interpreted: Pulse oximetry: on room air is 100 %. pm1 Interpretation: normal. Counseling: I had a detailed discussion with the patient and/or guardian regarding: the historical points, exam findings, and any diagnostic results supporting the discharge/admit diagnosis, lab results, the need to transfer to another facility, [facility] does not immediately have the required specialist. 10/14 21:12 ED course: Patient reports no change in suicidal ideation, she still feels suicidal. pm1 Pending placement to psychiatric facility. 10/15 15:14 ED course: Patient reports continued suicidal ideation and would like to be placed in pm1 an inpatient facility for treatment. 10/13 18:00 Order name: Acetaminophen ph 10/13 18:00 Order name: Basic Metabolic Panel; Complete Time: 19:26 ph 10/13 18:00 Order name: CBC with Diff; Complete Time: 18:50 ph 10/13 18:00 Order name: ETOH Level; Complete Time: 19:26 10/13 18:00 Order name: Hepatic Function; Complete Time: 19:26 10/13 18:00 Order name: PT-INR; Complete Time: 18:50 10/13 18:00 Order name: Ptt, Activated; Complete Time: 18:50 10/13 18:00 Order name: Salicylate; Complete Time: 18:50 ph 10/13 18:00 Order name: Urine Drug Screen; Complete Time: 19:26 ph 10/13 18:01 Order name: Acetaminophen Level; Complete Time: 19:26 EDMS 10/13 18:07 Order name: COVID-19 SARS RT PCR (Document "Date of Onset" if Symptomatic); Complete pm1 Time: 19:47 10/13 18:31 Order name: Urine Dipstick-Ancillary; Complete Time: 18:50 EDMS 10/13 18:33 Order name: Urine Microscopic Only pm1 10/13 18:33 Order name: Urine Microscopic Only; Complete Time: 19:26 EDMS 10/13 18:00 Order name: EKG; Complete Time: 18:01 ph 10/13 19:09 Order name: Urine Culture EDMS 10/14 01:27 Order name: Urine Dipstick-Ancillary; Complete Time: 01:50 EDMS 10/14 07:21 Order name: Diet Regular; Complete Time: 07:22 ph 10/15 07:29 Order name: Diet Finger Food; Complete Time: 07:30 bd 10/15 11:12 Order name: Diet Finger Food; Complete Time: 11:12 bd 10/15 15:56 Order name: Diet Finger Food; Complete Time: 15:56 bd 10/16 07:20 Order name: Diet Finger Food; Complete Time: 07:20 bd 10/13 18:00 Order name: EKG - Nurse/Tech; Complete Time: 18:37 ph 10/13 18:00 Order name: IV Saline Lock; Complete Time: 18:37 ph 10/13 18:00 Order name: Labs collected and sent; Complete Time: 18:37 ph 10/13 18:00 Order name: Suicide Precautions; Complete Time: 18:58 ph 10/13 18:00 Order name: Suicide Screening ([place]); Complete Time: 18:58 ph 10/13 18:00 Order name: Urine Dipstick-Ancillary (obtain specimen); Complete Time: 18:32 ph 10/16 15:44 Order name: Diet Finger Food; Complete Time: 15:44 bd 10/16 17:10 Order name: Diet Finger Food; Complete Time: 17:10 jl7 Administered Medications: 10/13 20:07 Drug: Rocephin (cefTRIAXone) 1 grams Route: IV; Rate: calculated rate; Site: left al4 antecubital; 20:07 Follow up: IV Status: Completed infusion; IV Intake: 10ml al4 10/14 02:15 Drug: NS 0.9% 1000 ml Route: IV; Rate: 1000 ml; Site: left antecubital; al4 04:22 Follow up: IV Status: Completed infusion al4 19:37 Drug: Rocephin (cefTRIAXone) 1 grams Route: IV; Rate: calculated rate; Infused Over: 2 al4 mins; Site: left antecubital; 19:38 Follow up: Response: No adverse reaction; IV Status: Completed infusion; IV Intake: [id number] 10/15 23:47 Drug: Rocephin (cefTRIAXone) 1 grams Route: IV; Rate: calculated rate; Site: left as6 antecubital; 10/16 03:16 Follow up: Response: No adverse reaction; IV Status: Completed infusion; IV Intake: [id number] 14:55 Drug: Valium (diazepam) 5 mg Route: PO; jl7 15:30 Follow up: Response: No adverse reaction; Anxiety decreased jl7 17:10 Drug: Bactrim (trimethoprim-sulfamethoxazole) (160 mg-800 mg (DS) 1 tablet Route: PO; jl7 18:56 Follow up: Response: No adverse reaction jl7 Disposition: 10/17 08:11 Co-signature as Attending Physician, Anibal Carrillo MD I agree with the assessment and kdr plan of care. Disposition Summary: 10/13/21 21:07 Transfer Ordered Accepting Physician: pm1 Transfer Location: [facility] Facility pm1 Reason: Specialty pm1 Condition: Stable pm1 Problem: an ongoing problem pm1 Symptoms: have worsened pm1 Accepting Physician: MD joe Diagnosis - Suicidal ideations pm1 Discharge Instructions: - Discharge Summary Sheet jl7 Forms: - Medication Reconciliation Form pm1 - SBAR form pm1 Signatures: Dispatcher [employer] Anibal Faria MD MD kdr Nieto, Roman, MD MD rn Smirch, Shelby, RN RN ss Hall, Patricia, RN RN ph Marinas, Patrick, [employer] pm1 Winsome Ingram RN RN jl7 José Luis Anna RN RN as6 Raciel Mack al4 Corrections: (The following items were deleted from the chart) 10/15 10:20 02 18:02 EKG Electrocardiogram ordered. EDMS EDMS
[2021-10-14 01:27] LABS: Urine Blood 2+ (Negative); Urine Glucose Negative (Negative); Urine Protein 3+ (Negative); Urine Specific Gravity >=1.030 (1.005-1.030); Urine pH 5.5 (5.0-7.0)
[2021-10-14] MEDS ORDERED: NA CHLORIDE 0.9% 1,000 ML ONE (02:12)
[2021-10-14] MEDS ORDERED: CEFTRIAXONE 1000 MG/VIAL ONE (19:33)
[2021-10-15] MEDS ORDERED: CEFTRIAXONE 1000 MG/VIAL ONE (23:04)
[2021-10-15] MEDS ORDERED: NA CHLORIDE 0.9% 50 ML ONE (23:04)
[2021-10-16] MEDS ORDERED: DIAZEPAM 5 MG TABLET ONE (14:54)
[2021-10-16] MEDS ORDERED: SMZ./TMP. 800/160 MG TABLET ONE (17:08)
[2021-10-16 19:55] VITALS: O2SAT 98
[2021-10-16 20:02] VITALS: BP 123/80; TEMP 98.3
== END 2021-10-16 18:56 ==
LOC: ER 17:42
DX: R45.851 Suicidal ideations (principal); F17.210 Nicotine dependence, cigarettes, uncomplicated; Z20.822 Contact with and (suspected) exposure to COVID-19
CPT/HCPCS: 36415; 80048; 80076; 80307; 80320; 80329; 81003; 81015; 85025; 85610; 85730; 87077; 87086; 87088; 87186; 93005; U0003